=== PATIENT | male | born 1985 | race Caucasian/White ===

== ENCOUNTER 2016-09-22 08:52 | Emergency (ER) | payer SELFPAY ==
[~2016-09-22] VITALS: Ht 185.4 cm; Wt 81.8 kg
[2016-09-22 10:32] LABS: HEMATOCRIT 44.8 % (38.0-50.0); MCH 30.2 PG (29.0-34.0); MCHC 33.9 G/DL (30.0-36.0); MCV 88.9 FL (86-99); PLATELET COUNT 275 K/uL (156-360); RBC DIS.WIDTH-CV 12.2 % (11.8-14.6); RBC DIS.WIDTH-SD 39.7 % (39-53); RED BLOOD COUNT 5.04 M/uL (4.00-5.50); WHITE BLOOD COUNT 6.6 K/uL (4.1-10.2)
[2016-09-22 10:41] LABS: CHLORIDE 104 mEq/L (99-109); POTASSIUM 5.6 mEq/L (3.7-5.4); SODIUM 139 mEq/L (136-147)
[2016-09-22 10:42] LABS: GLUCOSE 97 mg/dL (70-99)
[2016-09-22 10:44] LABS: ANION GAP 7 MEQ/L (2-14)
[2016-09-22 10:46] LABS: GFR ESTIMATE (CALCULATED) > 59 mL/min/
[2016-09-22 10:47] LABS: UREA NITROGEN (BUN) 10 mg/dL (9-23)
[2016-09-22 10:52] LABS: TROP-I INTERPRETATION NEGATIVE; TROPONIN-I < 0.01 ng/mL (0.0-0.30)
[2016-09-22 11:58] LABS: D-DIMER ELISA < 0.15 mg/L FEU (< 0.57)
[2016-09-22 13:09] LABS: CHLORIDE 103 mEq/L (99-109); POTASSIUM 4.9 mEq/L (3.7-5.4); SODIUM 139 mEq/L (136-147)
[2016-09-22 13:11] LABS: GLUCOSE 91 mg/dL (70-99)
[2016-09-22 13:12] LABS: ANION GAP 9 MEQ/L (2-14)
[2016-09-22 13:14] LABS: GFR ESTIMATE (CALCULATED) > 59 mL/min/
[2016-09-22 13:15] LABS: UREA NITROGEN (BUN) 9 mg/dL (9-23)
[2016-09-22 13:19] LABS: TROP-I INTERPRETATION NEGATIVE; TROPONIN-I < 0.01 ng/mL (0.0-0.30)
[2016-09-22 14:16] VITALS: BP 123/78
== END 2016-09-22 14:28 | disposition home or self-care (01) ==
LOC: EME 08:52
PROVIDERS: Emergency Medicine
DX: R07.89 Other chest pain (principal); R06.00 Dyspnea, unspecified; R42 Dizziness and giddiness; R53.83 Other fatigue; M54.2 Cervicalgia
CPT/HCPCS: 71020; 80048; 80048 91; 84484; 85027; 85379; 93005; 99281; 99284